=== PATIENT | male | born 1935 | race Caucasian/White ===

== ENCOUNTER 2020-02-22 08:09 | Inpatient (IN) | payer MEDICARE ==
[~2020-02-22] VITALS: Ht 175.3 cm; Wt 82.1 kg
[2020-02-22 09:00] VITALS: BP 138/67
[2020-02-22] MEDS ORDERED: MAGNESIUM HYDROXIDE 30 ML LIQUID UDC PO PRN (09:00)
[2020-02-22] MEDS ORDERED: MAG HYDROX/AL HYDROX/SIMETH 30 ML LIQUID UDC PO PRN (09:00)
[2020-02-22] MEDS ORDERED: DONE5TAB7 PO (09:13)
[2020-02-22] MEDS ORDERED: PARO30TA74 PO (09:13)
[2020-02-22] MEDS ORDERED: PRAV40TA3 PO (09:13)
[2020-02-22] MEDS ORDERED: MEMA10TA PO (09:13)
[2020-02-22] MEDS ORDERED: TICA90TA PO (09:13)
[2020-02-22] MEDS: LORAZEPAM 0.5 MG TABLET PO PRN ×2 (16:53→20:45)
[2020-02-22] MEDS: TICAGRELOR 90 MG TABLET PO SCH (17:00)
[2020-02-22] MEDS: DONEPEZIL 5 MG TABLET PO SCH (17:00)
[2020-02-22] MEDS ORDERED: OLANZAPINE 10 MG VIAL IM ONE ×2 (17:00→22:45)
[2020-02-22] MEDS: MEMANTINE HCL 10 MG TABLET PO SCH (17:00)
[2020-02-22 19:45] VITALS: BP 131/66
[2020-02-22] MEDS: ATORVASTATIN 10 MG TABLET PO SCH (21:01)
[2020-02-23 04:29] LABS: *BILIRUBIN,URIN NEGATIVE (NEGATIVE); *BLOOD, URINE 2+ (NEGATIVE); *COLOR,URINE YELLOW (YELLOW); *KETONES,URINE NEGATIVE (NEGATIVE); *UROBILINOGEN,URINE 0.2 E.U./dl (NORMAL); LEUKOCYTE ESTERASE ,URINE NEGATIVE (NEGATIVE); NITRITE, URINE NEGATIVE (NEGATIVE); PH,URINE 5.5 (5.0-8.0); UGLUCOSE NEGATIVE (NEGATIVE)
[2020-02-23 06:30] LABS: *CLARITY,URINE HAZY (CLEAR); BACTERIA,URINE NONE SEEN /HPF (NONE SEEN); RBC,URINE 50-80 /HPF (0-3); SQUAMOUS EPITHELIAL CELL,UR FEW /HPF (NONE SEEN)
[2020-02-23 07:30] VITALS: BP 144/93
[2020-02-23] MEDS: DONEPEZIL 5 MG TABLET PO SCH ×2 (08:39→17:02)
[2020-02-23] MEDS: MEMANTINE HCL 10 MG TABLET PO SCH ×2 (08:39→17:02)
[2020-02-23] MEDS: TICAGRELOR 90 MG TABLET PO SCH ×2 (08:40→17:03)
[2020-02-23] MEDS ORDERED: DIVALPROEX SPRINKLE 125 MG CAP.SPRINK PO SCH (09:00)
[2020-02-23 09:36] LABS: BASOPHILS % (AUTO) 0.3 % (0.0-2.0); EOSINOPHILS % (AUTO) 0.3 % (0.0-7.0); HEMATOCRIT 42.8 % (36.7-47.1); HEMOGLOBIN 14.1 g/dL (12.5-16.3); LYMPHOCYTES # (AUTO) 0.6 K/uL (20.0-40.0); LYMPHOCYTES % (AUTO) 12.1 % (20.5-51.5); MEAN CORPUSCULAR HEMOGLOBIN 30.2 uug (23.8-33.4); MEAN CORPUSCULAR HGB CONC 33 g/dL (32.5-36.3); MEAN CORPUSCULAR VOLUME 91.3 fL (73.0-96.2); MONOCYTES # (AUTO) 0.3 K/uL (2.0-10.0); MONOCYTES % (AUTO) 6.2 % (0.0-11.0); NEUTROPHILS # (AUTO) 4.3 K/uL (1.8-8.9); NEUTROPHILS % (AUTO) 81.1 % (38.5-71.5); PLATELET COUNT (AUTO) 170 K/uL (152-348); RED BLOOD CELL COUNT(AUTO) 4.69 MIL/uL (4.06-5.63); WHITE BLOOD COUNT (AUTO) 5.2 K/uL (3.6-10.2)
[2020-02-23 10:30] LABS: BILIRUBIN,TOTAL 0.4 mg/dL (0.2-1.0); CREATININE 1.1 mg/dL (0.6-1.3); POTASSIUM 4.1 mmol/L (3.5-5.1); TOTAL PROTEIN, SERUM 7.5 g/dL (6.4-8.2)
[2020-02-23 10:40] LABS: THYROID STIMULATING HORMONE 1.992 mIU/mL (0.358-3.740)
[2020-02-23 11:46] LABS: BILIRUBIN,DIRECT 0.1 mg/dL (0.0-0.2); BILIRUBIN,TOTAL 0.3 mg/dL (0.2-1.0); TOTAL PROTEIN, SERUM 7.4 g/dL (6.4-8.2)
[2020-02-23] MEDS: DIVALPROEX SPRINKLE 125 MG CAP.SPRINK PO SCH ×3 (13:27→20:13)
[2020-02-23] MEDS: LORAZEPAM 0.5 MG TABLET PO PRN ×2 (13:27→22:42)
[2020-02-23] MEDS: OLANZAPINE 2.5 MG TABLET PO SCH ×2 (13:27→20:13)
[2020-02-23 16:00] VITALS: BP 168/88
[2020-02-23 20:00] VITALS: BP 141/87
[2020-02-23] MEDS: ATORVASTATIN 10 MG TABLET PO SCH (20:13)
[2020-02-23] MEDS: TEMAZEPAM 7.5 MG CAPSULE PO PRN (23:50)
[2020-02-24 07:30] VITALS: BP 132/70
[2020-02-24] MEDS: OLANZAPINE 2.5 MG TABLET PO SCH ×5 (08:00→22:04)
[2020-02-24] MEDS: DIVALPROEX SPRINKLE 125 MG CAP.SPRINK PO SCH ×6 (09:00→22:05)
[2020-02-24] MEDS: TICAGRELOR 90 MG TABLET PO SCH ×3 (09:00→17:00)
[2020-02-24] MEDS: DONEPEZIL 5 MG TABLET PO SCH ×3 (09:00→17:16)
[2020-02-24] MEDS: MEMANTINE HCL 10 MG TABLET PO SCH ×3 (09:00→17:17)
[2020-02-24 16:00] VITALS: BP 132/74
[2020-02-24 20:00] VITALS: BP 130/70
[2020-02-24] MEDS: ATORVASTATIN 10 MG TABLET PO SCH ×2 (21:00→22:05)
[2020-02-25] MEDS ORDERED: OLANZAPINE 10 MG VIAL IM ONE ×2 (01:00→21:45)
[2020-02-25 07:30] VITALS: BP 139/62
[2020-02-25] MEDS: OLANZAPINE 2.5 MG TABLET PO SCH ×5 (08:00→20:10)
[2020-02-25] MEDS: DIVALPROEX SPRINKLE 125 MG CAP.SPRINK PO SCH ×5 (09:00→20:10)
[2020-02-25] MEDS: MEMANTINE HCL 10 MG TABLET PO SCH ×3 (09:00→16:54)
[2020-02-25] MEDS: DONEPEZIL 5 MG TABLET PO SCH ×3 (09:00→16:54)
[2020-02-25 16:43] VITALS: BP 122/49
[2020-02-25 20:00] VITALS: BP 112/63
[2020-02-25] MEDS: ATORVASTATIN 10 MG TABLET PO SCH (20:10)
[2020-02-25] MEDS: LORAZEPAM 0.5 MG TABLET PO PRN (20:45)
[2020-02-26] MEDS: TEMAZEPAM 7.5 MG CAPSULE PO PRN (00:21)
[2020-02-26 07:30] VITALS: BP 144/75
[2020-02-26] MEDS: OLANZAPINE 2.5 MG TABLET PO SCH ×3 (08:25→16:09)
[2020-02-26] MEDS: DIVALPROEX SPRINKLE 125 MG CAP.SPRINK PO SCH ×4 (08:25→20:00)
[2020-02-26] MEDS: DONEPEZIL 5 MG TABLET PO SCH ×2 (08:25→16:09)
[2020-02-26] MEDS: MEMANTINE HCL 10 MG TABLET PO SCH ×2 (08:25→16:20)
[2020-02-26 10:59] LABS: BASOPHILS % (AUTO) 0.5 % (0.0-2.0); EOSINOPHILS # (AUTO) 0.1 K/uL (0.0-0.7); EOSINOPHILS % (AUTO) 2.5 % (0.0-7.0); HEMOGLOBIN 14.2 g/dL (12.5-16.3); LYMPHOCYTES % (AUTO) 22.3 % (20.5-51.5); MEAN CORPUSCULAR HEMOGLOBIN 30.4 uug (23.8-33.4); MEAN CORPUSCULAR HGB CONC 34 g/dL (32.5-36.3); MONOCYTES # (AUTO) 0.6 K/uL (2.0-10.0); NEUTROPHILS # (AUTO) 2.9 K/uL (1.8-8.9); NEUTROPHILS % (AUTO) 61.7 % (38.5-71.5); PLATELET COUNT (AUTO) 155 K/uL (152-348); RED BLOOD CELL COUNT(AUTO) 4.67 MIL/uL (4.06-5.63); WHITE BLOOD COUNT (AUTO) 4.6 K/uL (3.6-10.2)
[2020-02-26 11:27] LABS: BILIRUBIN,TOTAL 0.5 mg/dL (0.2-1.0); CREATININE 1.1 mg/dL (0.6-1.3); MAGNESIUM 2.2 mg/dL (1.8-2.4); PHOSPHOROUS 3.8 mg/dL (2.5-4.9); POTASSIUM 4.5 mmol/L (3.5-5.1)
[2020-02-26 16:00] VITALS: BP 101/58
[2020-02-26] MEDS: LORAZEPAM 0.5 MG TABLET PO PRN (16:20)
[2020-02-26 20:00] VITALS: BP 114/68
[2020-02-26] MEDS ORDERED: OLANZAPINE 5 MG TABLET PO SCH (20:00)
[2020-02-26] MEDS: ATORVASTATIN 10 MG TABLET PO SCH (20:00)
[2020-02-26] MEDS ORDERED: OLANZAPINE 10 MG VIAL IM ONE (22:20)
[2020-02-27] MEDS: TEMAZEPAM 7.5 MG CAPSULE PO PRN (00:52)
[2020-02-27 07:30] VITALS: BP 137/75
[2020-02-27] MEDS: ACETAMINOPHEN 325 MG TABLET PO PRN (07:44)
[2020-02-27] MEDS: DIVALPROEX SPRINKLE 125 MG CAP.SPRINK PO SCH ×2 (08:16→12:07)
[2020-02-27] MEDS: MEMANTINE HCL 10 MG TABLET PO SCH ×2 (08:16→17:49)
[2020-02-27] MEDS: OLANZAPINE 2.5 MG TABLET PO SCH ×2 (08:16→12:07)
[2020-02-27] MEDS: DONEPEZIL 5 MG TABLET PO SCH ×2 (08:17→16:23)
[2020-02-27] MEDS ORDERED: TEMAZEPAM 7.5 MG CAPSULE PO PRN (13:00)
[2020-02-27] MEDS ORDERED: HYDROCORTISONE 1% CREAM 30 GM TUBE TP ONE (13:45)
[2020-02-27] MEDS: busPIRone 5 MG TABLET PO SCH ×2 (14:21→16:23)
[2020-02-27] MEDS: risperiDONE 0.5 MG TABLET PO SCH ×2 (14:21→16:23)
[2020-02-27 14:52] LABS: *BILIRUBIN,URIN NEGATIVE (NEGATIVE); *BLOOD, URINE NEGATIVE (NEGATIVE); *CLARITY,URINE CLEAR (CLEAR); *COLOR,URINE YELLOW (YELLOW); *KETONES,URINE TRACE (NEGATIVE); *UROBILINOGEN,URINE 0.2 E.U./dl (NORMAL); LEUKOCYTE ESTERASE ,URINE NEGATIVE (NEGATIVE); NITRITE, URINE NEGATIVE (NEGATIVE); UGLUCOSE NEGATIVE (NEGATIVE)
[2020-02-27 15:16] LABS: BACTERIA,URINE NONE SEEN /HPF (NONE SEEN); RBC,URINE 0-3 /HPF (0-3); SQUAMOUS EPITHELIAL CELL,UR NONE SEEN /HPF (NONE SEEN); WBC,URINE 0-3 /HPF (0-3)
[2020-02-27 15:45] VITALS: BP 126/81
[2020-02-27] MEDS: BENZTROPINE MESYLATE 0.5 MG TABLET PO SCH (16:23)
[2020-02-27 20:32] VITALS: BP 101/61
[2020-02-27] MEDS: ATORVASTATIN 10 MG TABLET PO SCH (20:33)
[2020-02-28] MEDS: risperiDONE 0.25 MG TABLET PO PRN ×2 (01:36→14:52)
[2020-02-28 07:30] VITALS: BP 99/55
[2020-02-28] MEDS: BENZTROPINE MESYLATE 0.5 MG TABLET PO SCH ×2 (08:18→16:22)
[2020-02-28] MEDS: MEMANTINE HCL 10 MG TABLET PO SCH ×2 (08:18→16:22)
[2020-02-28] MEDS: risperiDONE 0.5 MG TABLET PO SCH ×4 (08:18→21:31)
[2020-02-28] MEDS: busPIRone 5 MG TABLET PO SCH ×3 (08:18→16:22)
[2020-02-28] MEDS: DONEPEZIL 5 MG TABLET PO SCH ×2 (08:18→16:22)
[2020-02-28 16:00] VITALS: BP 99/45
[2020-02-28 20:09] VITALS: BP 108/62
[2020-02-28] MEDS: ATORVASTATIN 10 MG TABLET PO SCH (21:31)
[2020-02-28] MEDS: TAMSULOSIN HCL 0.4 MG CAP.SR.24H PO SCH (21:31)
[2020-02-28] MEDS: TEMAZEPAM 7.5 MG CAPSULE PO SCH (21:31)
[2020-02-29 07:30] VITALS: BP 102/48
[2020-02-29] MEDS: risperiDONE 0.5 MG TABLET PO SCH ×4 (09:25→20:14)
[2020-02-29] MEDS: busPIRone 5 MG TABLET PO SCH ×3 (09:25→17:48)
[2020-02-29] MEDS: BENZTROPINE MESYLATE 0.5 MG TABLET PO SCH ×2 (09:25→17:47)
[2020-02-29] MEDS: MEMANTINE HCL 10 MG TABLET PO SCH ×2 (09:25→17:48)
[2020-02-29] MEDS: DONEPEZIL 5 MG TABLET PO SCH ×2 (09:25→17:47)
[2020-02-29 16:00] VITALS: BP 113/59
[2020-02-29] MEDS: TICAGRELOR 90 MG TABLET PO SCH (17:48)
[2020-02-29 20:09] VITALS: BP 119/57
[2020-02-29] MEDS: TAMSULOSIN HCL 0.4 MG CAP.SR.24H PO SCH (20:10)
[2020-02-29] MEDS: ATORVASTATIN 10 MG TABLET PO SCH (20:10)
[2020-02-29] MEDS: Z GUARD REMEDY PASTE 57 GM TUBE TOP SCH (20:54)
[2020-02-29] MEDS: TEMAZEPAM 7.5 MG CAPSULE PO SCH (20:54)
[2020-03-01 07:30] VITALS: BP 110/60
[2020-03-01] MEDS: MEMANTINE HCL 10 MG TABLET PO SCH ×2 (08:15→16:50)
[2020-03-01] MEDS: BENZTROPINE MESYLATE 0.5 MG TABLET PO SCH ×2 (08:15→16:50)
[2020-03-01] MEDS: DONEPEZIL 5 MG TABLET PO SCH ×2 (08:15→16:50)
[2020-03-01] MEDS: busPIRone 5 MG TABLET PO SCH ×3 (08:15→16:50)
[2020-03-01] MEDS: risperiDONE 0.5 MG TABLET PO SCH ×4 (08:16→20:42)
[2020-03-01] MEDS: TICAGRELOR 90 MG TABLET PO SCH ×2 (08:47→16:50)
[2020-03-01] MEDS: Z GUARD REMEDY PASTE 57 GM TUBE TOP SCH ×2 (12:23→20:50)
[2020-03-01 15:51] VITALS: BP 141/83
[2020-03-01 20:06] VITALS: BP 113/55
[2020-03-01] MEDS: TAMSULOSIN HCL 0.4 MG CAP.SR.24H PO SCH (20:41)
[2020-03-01] MEDS: ATORVASTATIN 10 MG TABLET PO SCH (20:42)
[2020-03-01] MEDS: TEMAZEPAM 7.5 MG CAPSULE PO SCH (20:50)
[2020-03-02 07:30] VITALS: BP 122/70
[2020-03-02] MEDS: BENZTROPINE MESYLATE 0.5 MG TABLET PO SCH ×2 (08:17→17:33)
[2020-03-02] MEDS: MEMANTINE HCL 10 MG TABLET PO SCH ×2 (08:17→17:33)
[2020-03-02] MEDS: DONEPEZIL 5 MG TABLET PO SCH ×2 (08:17→17:33)
[2020-03-02] MEDS: busPIRone 5 MG TABLET PO SCH ×3 (08:17→17:33)
[2020-03-02] MEDS: risperiDONE 0.5 MG TABLET PO SCH ×2 (08:17→12:44)
[2020-03-02] MEDS: TICAGRELOR 90 MG TABLET PO SCH ×2 (08:17→17:33)
[2020-03-02] MEDS: Z GUARD REMEDY PASTE 57 GM TUBE TOP SCH ×2 (08:17→21:22)
[2020-03-02 16:10] VITALS: BP 119/63
[2020-03-02] MEDS: risperiDONE 0.25 MG TABLET PO SCH ×2 (17:33→21:05)
[2020-03-02 20:00] VITALS: BP 111/60
[2020-03-02] MEDS: TAMSULOSIN HCL 0.4 MG CAP.SR.24H PO SCH (21:05)
[2020-03-02] MEDS: ATORVASTATIN 10 MG TABLET PO SCH (21:05)
[2020-03-02] MEDS: TEMAZEPAM 7.5 MG CAPSULE PO SCH (21:07)
[2020-03-03 07:30] VITALS: BP 115/68
[2020-03-03] MEDS: LORAZEPAM 0.5 MG TABLET PO PRN ×3 (08:03→20:03)
[2020-03-03] MEDS: DONEPEZIL 5 MG TABLET PO SCH ×2 (08:03→16:09)
[2020-03-03] MEDS: TICAGRELOR 90 MG TABLET PO SCH ×2 (08:03→16:09)
[2020-03-03] MEDS: MEMANTINE HCL 10 MG TABLET PO SCH ×2 (08:03→16:09)
[2020-03-03] MEDS: BENZTROPINE MESYLATE 0.5 MG TABLET PO SCH ×2 (08:03→16:09)
[2020-03-03] MEDS: risperiDONE 0.25 MG TABLET PO SCH ×4 (08:03→20:03)
[2020-03-03] MEDS: busPIRone 5 MG TABLET PO SCH ×3 (08:03→16:09)
[2020-03-03] MEDS: Z GUARD REMEDY PASTE 57 GM TUBE TOP SCH ×2 (08:04→20:04)
[2020-03-03 16:00] VITALS: BP 100/64
[2020-03-03 20:00] VITALS: BP 100/77
[2020-03-03] MEDS: TAMSULOSIN HCL 0.4 MG CAP.SR.24H PO SCH (20:03)
[2020-03-03] MEDS: TEMAZEPAM 7.5 MG CAPSULE PO SCH (20:03)
[2020-03-03] MEDS: ATORVASTATIN 10 MG TABLET PO SCH (20:03)
[2020-03-04 07:30] VITALS: BP 119/60
[2020-03-04] MEDS: BENZTROPINE MESYLATE 0.5 MG TABLET PO SCH ×2 (08:28→16:27)
[2020-03-04] MEDS: busPIRone 5 MG TABLET PO SCH ×3 (08:28→16:27)
[2020-03-04] MEDS: risperiDONE 0.25 MG TABLET PO SCH ×4 (08:28→20:26)
[2020-03-04] MEDS: MEMANTINE HCL 10 MG TABLET PO SCH ×2 (08:28→16:27)
[2020-03-04] MEDS: Z GUARD REMEDY PASTE 57 GM TUBE TOP SCH ×2 (08:28→20:29)
[2020-03-04] MEDS: DONEPEZIL 5 MG TABLET PO SCH ×2 (08:29→16:27)
[2020-03-04] MEDS: TICAGRELOR 90 MG TABLET PO SCH ×2 (08:29→16:27)
[2020-03-04 15:04] VITALS: BP 152/87
[2020-03-04 20:00] VITALS: BP 119/60
[2020-03-04] MEDS: TAMSULOSIN HCL 0.4 MG CAP.SR.24H PO SCH (20:25)
[2020-03-04] MEDS: ATORVASTATIN 10 MG TABLET PO SCH (20:25)
[2020-03-04] MEDS: TEMAZEPAM 7.5 MG CAPSULE PO SCH (20:27)
[2020-03-05 07:30] VITALS: BP 157/84
[2020-03-05] MEDS: DONEPEZIL 5 MG TABLET PO SCH ×3 (09:00→16:24)
[2020-03-05] MEDS: risperiDONE 0.25 MG TABLET PO SCH ×5 (09:00→20:11)
[2020-03-05] MEDS: busPIRone 5 MG TABLET PO SCH ×4 (09:00→16:24)
[2020-03-05] MEDS: BENZTROPINE MESYLATE 0.5 MG TABLET PO SCH ×3 (09:00→16:24)
[2020-03-05] MEDS: TICAGRELOR 90 MG TABLET PO SCH ×3 (09:00→16:30)
[2020-03-05] MEDS: MEMANTINE HCL 10 MG TABLET PO SCH ×3 (09:00→16:30)
[2020-03-05] MEDS: Z GUARD REMEDY PASTE 57 GM TUBE TOP SCH ×2 (09:33→20:22)
[2020-03-05 15:34] VITALS: BP 95/55
[2020-03-05] MEDS: LORAZEPAM 0.5 MG TABLET PO PRN (19:05)
[2020-03-05 19:44] VITALS: BP 111/62
[2020-03-05] MEDS: TAMSULOSIN HCL 0.4 MG CAP.SR.24H PO SCH (20:11)
[2020-03-05] MEDS: TEMAZEPAM 7.5 MG CAPSULE PO SCH (20:12)
[2020-03-05] MEDS: ATORVASTATIN 10 MG TABLET PO SCH (20:13)
[2020-03-06] MEDS: LORAZEPAM 0.5 MG TABLET PO PRN (00:06)
[2020-03-06] MEDS: ACETAMINOPHEN 325 MG TABLET PO PRN (00:06)
[2020-03-06] MEDS: risperiDONE 0.25 MG TABLET PO PRN (00:07)
[2020-03-06 07:30] VITALS: BP 109/63
[2020-03-06] MEDS: busPIRone 5 MG TABLET PO SCH ×4 (09:22→21:05)
[2020-03-06] MEDS: DONEPEZIL 5 MG TABLET PO SCH ×2 (09:22→17:10)
[2020-03-06] MEDS: risperiDONE 0.25 MG TABLET PO SCH ×4 (09:22→21:06)
[2020-03-06] MEDS: TICAGRELOR 90 MG TABLET PO SCH ×2 (09:24→17:08)
[2020-03-06] MEDS: MEMANTINE HCL 10 MG TABLET PO SCH ×2 (09:24→17:09)
[2020-03-06] MEDS: BENZTROPINE MESYLATE 0.5 MG TABLET PO SCH ×2 (09:24→17:09)
[2020-03-06] MEDS: Z GUARD REMEDY PASTE 57 GM TUBE TOP SCH ×2 (09:30→21:07)
[2020-03-06] MEDS ORDERED: GABAPENTIN 100 MG CAPSULE PO SCH (13:00)
[2020-03-06] MEDS: GABAPENTIN 100 MG CAPSULE PO SCH ×2 (13:52→17:11)
[2020-03-06 14:50] LABS: *BILIRUBIN,URIN NEGATIVE (NEGATIVE); *BLOOD, URINE NEGATIVE (NEGATIVE); *CLARITY,URINE CLEAR (CLEAR); *COLOR,URINE YELLOW (YELLOW); *KETONES,URINE NEGATIVE (NEGATIVE); *UROBILINOGEN,URINE 0.2 E.U./dl (NORMAL); LEUKOCYTE ESTERASE ,URINE NEGATIVE (NEGATIVE); NITRITE, URINE NEGATIVE (NEGATIVE); UGLUCOSE NEGATIVE (NEGATIVE)
[2020-03-06 15:34] LABS: BASOPHILS % (AUTO) 0.3 % (0.0-2.0); EOSINOPHILS # (AUTO) 0.2 K/uL (0.0-0.7); EOSINOPHILS % (AUTO) 2.8 % (0.0-7.0); HEMATOCRIT 37.7 % (36.7-47.1); HEMOGLOBIN 12.4 g/dL (12.5-16.3); LYMPHOCYTES # (AUTO) 0.9 K/uL (20.0-40.0); LYMPHOCYTES % (AUTO) 16.2 % (20.5-51.5); MEAN CORPUSCULAR HEMOGLOBIN 29.9 uug (23.8-33.4); MEAN CORPUSCULAR HGB CONC 33 g/dL (32.5-36.3); MEAN CORPUSCULAR VOLUME 91.1 fL (73.0-96.2); MONOCYTES # (AUTO) 0.8 K/uL (2.0-10.0); MONOCYTES % (AUTO) 14.7 % (0.0-11.0); NEUTROPHILS # (AUTO) 3.7 K/uL (1.8-8.9); PLATELET COUNT (AUTO) 157 K/uL (152-348); RED BLOOD CELL COUNT(AUTO) 4.13 MIL/uL (4.06-5.63); WHITE BLOOD COUNT (AUTO) 5.6 K/uL (3.6-10.2)
[2020-03-06 15:41] LABS: BILIRUBIN,TOTAL 0.3 mg/dL (0.2-1.0); POTASSIUM 4.1 mmol/L (3.5-5.1); TOTAL PROTEIN, SERUM 6.4 g/dL (6.4-8.2)
[2020-03-06 15:54] VITALS: BP 118/56
[2020-03-06 20:16] VITALS: BP 125/49
[2020-03-06] MEDS ORDERED: busPIRone 5 MG TABLET PO SCH (21:00)
[2020-03-06] MEDS: TAMSULOSIN HCL 0.4 MG CAP.SR.24H PO SCH (21:05)
[2020-03-06] MEDS: TEMAZEPAM 7.5 MG CAPSULE PO SCH (21:06)
[2020-03-06] MEDS: ATORVASTATIN 10 MG TABLET PO SCH (21:06)
[2020-03-07] MEDS: TEMAZEPAM 7.5 MG CAPSULE PO PRN (00:36)
[2020-03-07] MEDS: risperiDONE 0.25 MG TABLET PO PRN ×2 (06:01→14:01)
[2020-03-07 07:30] VITALS: BP 119/65
[2020-03-07] MEDS: MEMANTINE HCL 10 MG TABLET PO SCH ×2 (09:08→16:31)
[2020-03-07] MEDS: risperiDONE 0.25 MG TABLET PO SCH ×3 (09:08→20:36)
[2020-03-07] MEDS: BENZTROPINE MESYLATE 0.5 MG TABLET PO SCH ×2 (09:08→16:29)
[2020-03-07] MEDS: DONEPEZIL 5 MG TABLET PO SCH ×2 (09:08→16:29)
[2020-03-07] MEDS: Z GUARD REMEDY PASTE 57 GM TUBE TOP SCH ×2 (09:09→20:47)
[2020-03-07] MEDS: GABAPENTIN 100 MG CAPSULE PO SCH ×3 (09:09→16:30)
[2020-03-07] MEDS: TICAGRELOR 90 MG TABLET PO SCH ×2 (09:09→16:31)
[2020-03-07] MEDS: busPIRone 5 MG TABLET PO SCH ×4 (09:09→20:35)
[2020-03-07] MEDS: LORAZEPAM 0.5 MG TABLET PO PRN ×2 (13:40→19:00)
[2020-03-07 16:00] VITALS: BP 115/63
[2020-03-07] MEDS: risperiDONE 1 MG TABLET PO SCH ×2 (18:00→18:02)
[2020-03-07 20:00] VITALS: BP 136/75
[2020-03-07] MEDS: TAMSULOSIN HCL 0.4 MG CAP.SR.24H PO SCH (20:34)
[2020-03-07] MEDS: TEMAZEPAM 7.5 MG CAPSULE PO SCH (20:35)
[2020-03-07] MEDS: ATORVASTATIN 10 MG TABLET PO SCH (20:36)
[2020-03-08] MEDS: LORAZEPAM 0.5 MG TABLET PO PRN ×2 (02:31→11:16)
[2020-03-08] MEDS ORDERED: risperiDONE 0.5 MG TABLET PO PRN (07:00)
[2020-03-08 07:30] VITALS: BP 101/65
[2020-03-08 07:48] LABS: BASOPHILS % (AUTO) 0.3 % (0.0-2.0); EOSINOPHILS # (AUTO) 0.1 K/uL (0.0-0.7); EOSINOPHILS % (AUTO) 1.3 % (0.0-7.0); HEMOGLOBIN 12.8 g/dL (12.5-16.3); LYMPHOCYTES # (AUTO) 0.6 K/uL (20.0-40.0); LYMPHOCYTES % (AUTO) 11.1 % (20.5-51.5); MEAN CORPUSCULAR HEMOGLOBIN 30.6 uug (23.8-33.4); MEAN CORPUSCULAR HGB CONC 34 g/dL (32.5-36.3); MEAN CORPUSCULAR VOLUME 90.5 fL (73.0-96.2); MONOCYTES # (AUTO) 0.7 K/uL (2.0-10.0); MONOCYTES % (AUTO) 11.5 % (0.0-11.0); NEUTROPHILS # (AUTO) 4.3 K/uL (1.8-8.9); NEUTROPHILS % (AUTO) 75.8 % (38.5-71.5); PLATELET COUNT (AUTO) 162 K/uL (152-348); WHITE BLOOD COUNT (AUTO) 5.7 K/uL (3.6-10.2)
[2020-03-08 07:59] LABS: ALANINE AMINOTRANSFERASE 63 U/L (16-63); ALKALINE PHOSPHATASE 102 U/L (50-136); ASPARTATE AMINOTRANSFERASE 45 U/L (15-37); BILIRUBIN,TOTAL 0.3 mg/dL (0.2-1.0); CARBON DIOXIDE 28 mmol/L (21-32); CHLORIDE 107 mmol/L (98-107); CREATININE 0.9 mg/dL (0.6-1.3); GLUCOSE 121 mg/dL (74-106); TOTAL PROTEIN, SERUM 6.7 g/dL (6.4-8.2); UREA NITROGEN, BLOOD 17 mg/dL (7-18)
[2020-03-08] MEDS ORDERED: risperiDONE 0.5 MG TABLET PO SCH (09:00)
[2020-03-08] MEDS: MEMANTINE HCL 10 MG TABLET PO SCH ×2 (09:05→17:10)
[2020-03-08] MEDS: busPIRone 5 MG TABLET PO SCH ×3 (09:05→17:11)
[2020-03-08] MEDS: BENZTROPINE MESYLATE 0.5 MG TABLET PO SCH ×2 (09:06→17:10)
[2020-03-08] MEDS: DONEPEZIL 5 MG TABLET PO SCH ×2 (09:06→17:10)
[2020-03-08] MEDS: TICAGRELOR 90 MG TABLET PO SCH ×2 (09:06→17:10)
[2020-03-08] MEDS: Z GUARD REMEDY PASTE 57 GM TUBE TOP SCH ×2 (09:07→20:14)
[2020-03-08] MEDS: risperiDONE 1 MG TABLET PO SCH ×2 (12:16→17:10)
[2020-03-08] MEDS ORDERED: risperiDONE 1 MG TABLET PO SCH ×2 (13:00→21:00)
[2020-03-08 16:27] VITALS: BP 126/70
[2020-03-08] MEDS ORDERED: PAROXETINE HCL 10 MG TABLET PO SCH (17:00)
[2020-03-08 20:00] VITALS: BP 123/73
[2020-03-08] MEDS: risperiDONE 0.25 MG TABLET PO SCH (20:13)
[2020-03-08] MEDS: TAMSULOSIN HCL 0.4 MG CAP.SR.24H PO SCH (20:13)
[2020-03-08] MEDS: TEMAZEPAM 7.5 MG CAPSULE PO SCH (20:13)
[2020-03-08] MEDS: ATORVASTATIN 10 MG TABLET PO SCH (20:14)
[2020-03-08] MEDS: TEMAZEPAM 7.5 MG CAPSULE PO PRN (21:33)
[2020-03-09] MEDS: LORAZEPAM 0.5 MG TABLET PO PRN (05:07)
[2020-03-09 07:30] VITALS: BP 149/76
[2020-03-09] MEDS ORDERED: GABAPENTIN 100 MG CAPSULE PO PRN (08:00)
[2020-03-09] MEDS: risperiDONE 1 MG TABLET PO SCH ×3 (08:24→17:05)
[2020-03-09] MEDS: DONEPEZIL 5 MG TABLET PO SCH ×2 (08:24→16:05)
[2020-03-09] MEDS: TICAGRELOR 90 MG TABLET PO SCH ×2 (08:25→16:14)
[2020-03-09] MEDS: MEMANTINE HCL 10 MG TABLET PO SCH ×2 (08:26→16:06)
[2020-03-09] MEDS: GABAPENTIN 100 MG CAPSULE PO SCH ×4 (08:28→20:16)
[2020-03-09] MEDS: Z GUARD REMEDY PASTE 57 GM TUBE TOP SCH ×2 (08:28→20:17)
[2020-03-09] MEDS: BENZTROPINE MESYLATE 0.5 MG TABLET PO SCH ×2 (08:28→16:06)
[2020-03-09 16:00] VITALS: BP 129/66
[2020-03-09 20:00] VITALS: BP 131/73
[2020-03-09] MEDS: risperiDONE 0.25 MG TABLET PO SCH (20:15)
[2020-03-09] MEDS: TEMAZEPAM 7.5 MG CAPSULE PO SCH (20:16)
[2020-03-09] MEDS: ATORVASTATIN 10 MG TABLET PO SCH (20:16)
[2020-03-09] MEDS: TAMSULOSIN HCL 0.4 MG CAP.SR.24H PO SCH (20:16)
[2020-03-10 07:54] VITALS: BP 133/71
[2020-03-10] MEDS: DONEPEZIL 5 MG TABLET PO SCH ×2 (08:38→16:00)
[2020-03-10] MEDS: BENZTROPINE MESYLATE 0.5 MG TABLET PO SCH ×2 (08:38→16:00)
[2020-03-10] MEDS: risperiDONE 1 MG TABLET PO SCH ×3 (08:38→17:03)
[2020-03-10] MEDS: TICAGRELOR 90 MG TABLET PO SCH ×2 (08:39→16:00)
[2020-03-10] MEDS: MEMANTINE HCL 10 MG TABLET PO SCH ×2 (08:39→16:01)
[2020-03-10] MEDS: Z GUARD REMEDY PASTE 57 GM TUBE TOP SCH ×2 (08:40→20:51)
[2020-03-10] MEDS ORDERED: GABAPENTIN 100 MG CAPSULE PO SCH (09:00)
[2020-03-10] MEDS: ASPIRIN 81 MG TAB.CHEW PO SCH (11:23)
[2020-03-10] MEDS: GABAPENTIN 100 MG CAPSULE PO SCH ×2 (12:00→20:41)
[2020-03-10 16:25] VITALS: BP 105/52
[2020-03-10] MEDS: risperiDONE 0.25 MG TABLET PO SCH (20:41)
[2020-03-10] MEDS: TEMAZEPAM 7.5 MG CAPSULE PO SCH (20:41)
[2020-03-10] MEDS: ATORVASTATIN 10 MG TABLET PO SCH (20:41)
[2020-03-10] MEDS: TAMSULOSIN HCL 0.4 MG CAP.SR.24H PO SCH (20:41)
[2020-03-10 20:44] VITALS: BP 133/56
[2020-03-11 07:30] VITALS: BP 91/51
[2020-03-11 08:04] LABS: BASOPHILS % (AUTO) 0.3 % (0.0-2.0); EOSINOPHILS # (AUTO) 0.1 K/uL (0.0-0.7); EOSINOPHILS % (AUTO) 1.1 % (0.0-7.0); HEMATOCRIT 40.9 % (36.7-47.1); HEMOGLOBIN 13.6 g/dL (12.5-16.3); LYMPHOCYTES # (AUTO) 0.6 K/uL (20.0-40.0); LYMPHOCYTES % (AUTO) 9.1 % (20.5-51.5); MEAN CORPUSCULAR HEMOGLOBIN 30.2 uug (23.8-33.4); MEAN CORPUSCULAR HGB CONC 33 g/dL (32.5-36.3); MEAN CORPUSCULAR VOLUME 91.1 fL (73.0-96.2); MONOCYTES # (AUTO) 0.6 K/uL (2.0-10.0); MONOCYTES % (AUTO) 8.9 % (0.0-11.0); NEUTROPHILS # (AUTO) 5.7 K/uL (1.8-8.9); NEUTROPHILS % (AUTO) 80.6 % (38.5-71.5); PLATELET COUNT (AUTO) 176 K/uL (152-348); RED BLOOD CELL COUNT(AUTO) 4.49 MIL/uL (4.06-5.63); WHITE BLOOD COUNT (AUTO) 7.1 K/uL (3.6-10.2)
[2020-03-11] MEDS: ASPIRIN 81 MG TAB.CHEW PO SCH (08:05)
[2020-03-11] MEDS: DONEPEZIL 5 MG TABLET PO SCH ×2 (08:05→16:55)
[2020-03-11] MEDS: MEMANTINE HCL 10 MG TABLET PO SCH ×2 (08:05→16:55)
[2020-03-11] MEDS: risperiDONE 1 MG TABLET PO SCH ×3 (08:05→16:55)
[2020-03-11] MEDS: BENZTROPINE MESYLATE 0.5 MG TABLET PO SCH ×2 (08:06→16:55)
[2020-03-11] MEDS: Z GUARD REMEDY PASTE 57 GM TUBE TOP SCH ×2 (08:06→20:19)
[2020-03-11] MEDS: TICAGRELOR 90 MG TABLET PO SCH ×2 (08:07→17:01)
[2020-03-11 08:20] LABS: BILIRUBIN,TOTAL 0.4 mg/dL (0.2-1.0); POTASSIUM 4.2 mmol/L (3.5-5.1); TOTAL PROTEIN, SERUM 7.2 g/dL (6.4-8.2)
[2020-03-11] MEDS: LORAZEPAM 0.5 MG TABLET PO PRN ×2 (10:54→16:55)
[2020-03-11] MEDS: GABAPENTIN 100 MG CAPSULE PO SCH ×2 (12:14→20:19)
[2020-03-11 15:48] VITALS: BP 91/51
[2020-03-11 20:00] VITALS: BP 167/96
[2020-03-11] MEDS: TAMSULOSIN HCL 0.4 MG CAP.SR.24H PO SCH (20:18)
[2020-03-11] MEDS: risperiDONE 0.25 MG TABLET PO SCH (20:19)
[2020-03-11] MEDS: TEMAZEPAM 7.5 MG CAPSULE PO SCH (20:19)
[2020-03-12 07:59] VITALS: BP 133/61
[2020-03-12] MEDS: DONEPEZIL 5 MG TABLET PO SCH ×2 (08:11→17:15)
[2020-03-12] MEDS: TICAGRELOR 90 MG TABLET PO SCH ×2 (08:11→17:15)
[2020-03-12] MEDS: risperiDONE 1 MG TABLET PO SCH ×3 (08:11→17:16)
[2020-03-12] MEDS: MEMANTINE HCL 10 MG TABLET PO SCH ×2 (08:11→17:16)
[2020-03-12] MEDS: BENZTROPINE MESYLATE 0.5 MG TABLET PO SCH ×2 (08:11→17:15)
[2020-03-12] MEDS: ASPIRIN 81 MG TAB.CHEW PO SCH (08:11)
[2020-03-12] MEDS: Z GUARD REMEDY PASTE 57 GM TUBE TOP SCH ×2 (08:12→20:23)
[2020-03-12] MEDS: GABAPENTIN 100 MG CAPSULE PO SCH ×2 (12:14→20:22)
[2020-03-12] MEDS: ACETAMINOPHEN 325 MG TABLET PO PRN (12:17)
[2020-03-12] MEDS: LORAZEPAM 0.5 MG TABLET PO PRN (12:20)
[2020-03-12 15:20] VITALS: BP 129/71
[2020-03-12 20:00] VITALS: BP 147/90
[2020-03-12] MEDS: TEMAZEPAM 7.5 MG CAPSULE PO SCH (20:22)
[2020-03-12] MEDS: risperiDONE 0.25 MG TABLET PO SCH (20:23)
[2020-03-12] MEDS: TAMSULOSIN HCL 0.4 MG CAP.SR.24H PO SCH (20:23)
[2020-03-13] MEDS: LORAZEPAM 0.5 MG TABLET PO PRN ×2 (00:54→11:58)
[2020-03-13 07:15] LABS: BASOPHILS % (AUTO) 0.3 % (0.0-2.0); EOSINOPHILS # (AUTO) 0.1 K/uL (0.0-0.7); EOSINOPHILS % (AUTO) 1.2 % (0.0-7.0); HEMOGLOBIN 12.3 g/dL (12.5-16.3); LYMPHOCYTES # (AUTO) 0.7 K/uL (20.0-40.0); LYMPHOCYTES % (AUTO) 8.2 % (20.5-51.5); MEAN CORPUSCULAR HEMOGLOBIN 30.4 uug (23.8-33.4); MEAN CORPUSCULAR HGB CONC 33 g/dL (32.5-36.3); MEAN CORPUSCULAR VOLUME 91.2 fL (73.0-96.2); MONOCYTES # (AUTO) 0.7 K/uL (2.0-10.0); MONOCYTES % (AUTO) 8.7 % (0.0-11.0); NEUTROPHILS # (AUTO) 6.8 K/uL (1.8-8.9); NEUTROPHILS % (AUTO) 81.6 % (38.5-71.5); PLATELET COUNT (AUTO) 176 K/uL (152-348); RED BLOOD CELL COUNT(AUTO) 4.06 MIL/uL (4.06-5.63); WHITE BLOOD COUNT (AUTO) 8.3 K/uL (3.6-10.2)
[2020-03-13 07:17] LABS: ALANINE AMINOTRANSFERASE 177 U/L (16-63); ALKALINE PHOSPHATASE 104 U/L (50-136); ASPARTATE AMINOTRANSFERASE 107 U/L (15-37); BILIRUBIN,TOTAL 0.4 mg/dL (0.2-1.0); CARBON DIOXIDE 29 mmol/L (21-32); CHLORIDE 108 mmol/L (98-107); GLUCOSE 119 mg/dL (74-106); POTASSIUM 4.1 mmol/L (3.5-5.1); TOTAL PROTEIN, SERUM 6.6 g/dL (6.4-8.2); UREA NITROGEN, BLOOD 26 mg/dL (7-18)
[2020-03-13 07:30] VITALS: BP 93/49
[2020-03-13] MEDS: DONEPEZIL 5 MG TABLET PO SCH (08:38)
[2020-03-13] MEDS: TICAGRELOR 90 MG TABLET PO SCH (08:38)
[2020-03-13] MEDS: ASPIRIN 81 MG TAB.CHEW PO SCH (08:38)
[2020-03-13] MEDS: BENZTROPINE MESYLATE 0.5 MG TABLET PO SCH (08:38)
[2020-03-13] MEDS: risperiDONE 1 MG TABLET PO SCH ×2 (08:38→12:27)
[2020-03-13] MEDS: Z GUARD REMEDY PASTE 57 GM TUBE TOP SCH (08:39)
[2020-03-13] MEDS: MEMANTINE HCL 10 MG TABLET PO SCH (08:39)
[2020-03-13 09:00] VITALS: BP 101/61
[2020-03-13] MEDS: GABAPENTIN 100 MG CAPSULE PO SCH (12:27)
[2020-03-13 13:43] VITALS: BP 106/56
[2020-03-14 08:26] LABS: HEPATITIS A AB, IgM Negative (Negative); HEPATITIS A AB, TOTAL Negative (Negative); HEPATITIS B SURFACE AB Non Reactive (.); HEPATITIS B SURFACE AG Negative (Negative); HEPATITIS Be ANTIGEN Negative (Negative)
[2020-03-14] MEDS ORDERED: risperiDONE 1 MG TABLET PO SCH (09:00)
== END 2020-03-13 15:15 | DRG 885 ==
LOC: GPS 08:09
PROVIDERS: ADMIT Psychiatry & Neurology Psychosomatic Medicine; ATTEND Nurse Practitioner Acute Care
DX: F25.9 Schizoaffective disorder, unspecified (principal); F01.50 Vascular dementia, unspecified severity, without behavioral disturbance, psychotic disturbance, mood disturbance, and anxiety; G93.41 Metabolic encephalopathy; E78.5 Hyperlipidemia, unspecified; I10 Essential (primary) hypertension; I25.10 Atherosclerotic heart disease of native coronary artery without angina pectoris; Z95.5 Presence of coronary angioplasty implant and graft; I44.4 Left anterior fascicular block; I67.2 Cerebral atherosclerosis; K76.0 Fatty (change of) liver, not elsewhere classified; R31.0 Gross hematuria; R73.03 Prediabetes; T45.515A Adverse effect of anticoagulants, initial encounter; Y92.230 Patient room in hospital as the place of occurrence of the external cause; G30.9 Alzheimer's disease, unspecified; F02.80 Dementia in other diseases classified elsewhere, unspecified severity, without behavioral disturbance, psychotic disturbance, mood disturbance, and anxiety; N40.0 Benign prostatic hyperplasia without lower urinary tract symptoms; Z20.828 Contact with and (suspected) exposure to other viral communicable diseases; F41.9 Anxiety disorder, unspecified; F43.10 Post-traumatic stress disorder, unspecified
CPT/HCPCS: 36415; 70450; 71045; 76700; 83690; 83735; 84100; 84153; 84443; 85025; 86704; 86705; 86706; 86708; 86709; 86803; 87086; 87340; 87350; 93005; J2358